=== PATIENT | female | born 1975 | race Caucasian/White ===

== ENCOUNTER → 2019-12-15 08:36 | Outpatient (BNVA) | payer OTHER, SELFPAY | PROVIDERS: Family Provider Family Medicine; PCP Family Medicine; Visit Provider Podiatrist Foot & Ankle Surgery | DX: M79.672 Pain in left foot (principal); M77.32 Calcaneal spur, left foot; R60.9 Edema, unspecified; M21.42 Flat foot [pes planus] (acquired), left foot | CPT/HCPCS: 73630 ==

== ENCOUNTER → 2020-01-05 08:22 | Outpatient (BNVA) | payer OTHER, SELFPAY | PROVIDERS: Family Provider Family Medicine; PCP Family Medicine; Visit Provider Podiatrist Foot & Ankle Surgery | DX: M25.572 Pain in left ankle and joints of left foot (principal); M79.673 Pain in unspecified foot; M21.42 Flat foot [pes planus] (acquired), left foot | CPT/HCPCS: 73600; 73630 ==

== ENCOUNTER 2021-05-26 17:42 | Outpatient (CLI) | payer OTHER, SELFPAY ==
--- NOTE | 2021-05-26 17:52 | XR_ITS ---
WS: [id number] LEFT KNEE: 3 VIEW(S) TECHNIQUE: AP, oblique(s) and lateral. HISTORY: LEFT KNEE PAIN COMPARISON: None available. No fracture or dislocation. Very mild narrowing of patellofemoral joint space. There are small osteophytes along the medial joint line and along the inferior patella. No joint effusion. No soft tissue abnormality. XR/XR knee LT 3V* [id number] IMPRESSION: Very mild osteoarthritic changes at the patellofemoral and medial compartments.
== END 2021-05-26 17:43 | disposition home or self-care (01) ==
LOC: RAD 17:46
PROVIDERS: PCP Family Medicine; Visit Provider Nurse Practitioner
DX: M25.562 Pain in left knee (principal)
CPT/HCPCS: 73562

== ENCOUNTER 2021-07-14 09:51 | Outpatient (RCR) | payer OTHER, SELFPAY | END 2021-08-09 23:59 | disposition home or self-care (01) | LOC: SPT 09:51 | PROVIDERS: PCP Family Medicine; Referring Provider Orthopaedic Surgery; Visit Provider Orthopaedic Surgery | DX: M25.562 Pain in left knee (principal) | CPT/HCPCS: 97110; 97161 ==

== ENCOUNTER → 2021-09-23 14:00 | Outpatient (BNVA) | payer OTHER, SELFPAY | PROVIDERS: PCP Family Medicine; Visit Provider Orthopaedic Surgery | DX: Z01.812 Encounter for preprocedural laboratory examination (principal); Z20.822 Contact with and (suspected) exposure to COVID-19 | CPT/HCPCS: 87635 ==

== ENCOUNTER 2021-09-29 08:39 | Day surgery (SDC) | payer OTHER, SELFPAY ==
[2021-09-29] VITALS (10 sets, daily range): BP systolic 149–164; BP diastolic 76–112; PULSE 74–88; RESP 11–18; TEMP 36.2–36.8; O2SAT 94–100; BMI 58.1
[2021-09-29] MEDS: sodium chloride 0.9% 1,000 ML 30 ML IV (10:00)
--- NOTE | 2021-09-29 10:06 | W.PM.OPSUD ---
Surgery/Procedure H&P Update DATE OF PROCEDURE: September 29, 2021 DATE H&P PERFORMED: 09/20/21 H&P UPDATE INFORMATION: I have reviewed H&P completed within last 30 days PREOP DIAGNOSIS: Left medial meniscal tear, chondromalacia PLANNED PROCEDURE: Operation Date: 09/29/21 10:20 Proposed Procedures p Knee Arthroscopy w/ Medial Menscectomy 69663 M17.12 S83.249A(Left) - Manjinder Morales MD
--- NOTE | 2021-09-29 10:10 | P.ANESASSM_ITS ---
Pre-Anesthetic Assessment Pre-Anesthetic Assessment: Height/Weight: Height 1.68 m Weight 163.293 kg Temp Pulse Resp BP Pulse Ox 98.2 F 78 18 151/112 99 09/29/21 09:03 09/29/21 09:03 09/29/21 09:03 09/29/21 09:03 09/29/21 09:03 Preop Diagnosis: Left medial meniscal tear, chondromalacia Proposed Procedure: Operation Date: 09/29/21 10:20 Proposed Procedures p Knee Arthroscopy w/ Medial Menscectomy 06275 M17.12 S83.249A(Left) - Manjinder Morales MD Familial anesthetic complications: None Was Beta Vasquez taken within 24 hours: N/A Was Clonidine taken within 24 hours: N/A Last intake: Intake Last Liquid Date 09/28/21 Last Liquid Time 22:00 Last Solid Date 09/28/21 Last Solid Time 17:30 Social: Social History: No alcohol and No tobacco Exam: Pre-Anes Outpt Exam: alert, oriented x 3, clear to auscultation bilaterally and regular rate & rhythm Airway: MP: 4 Dentition: Full Pulmonary: Pulmonary: Asthma CV/HEM: CV/HEM: HTN Metabolic: Metabolic: Morbid obesity Anesthetic Plan: ASA status: 3 Anesthesia: General Risk of > 500 ml blood loss (7ml/kg in children): No PFSH Anesthesia PFSH: Medical History (Updated 09/20/21 @ 10:48 by Manjinder Morales MD) Anxiety Depression Surgical History H/O: hysterectomy History of neck surgery (~03/2019) Family History Other Diabetes Denies family history of Cancer Social History Alcohol intake: never Household members: spouse and children Marital status: Current occupational status: employed Current occupation: [employer] [place] [employer] Anesthesia Cardiac Studies: No Data to Display
[2021-09-29] MEDS: ceFAZolin 3,000 MG in sodium chloride 0.9% (100 ml) 100 ML 200 MG IV (10:36)
[2021-09-29] MEDS: morphine 4 mg/mL SDV 1 mL 8 MG XX (11:16)
--- NOTE | 2021-09-29 11:48 | PM.OP ---
Operative Report Date of procedure: September 29, 2021 Pre-op Diagnosis: Left medial meniscal tear, chondromalacia Post-op diagnosis: other (Left lateral meniscal tear, chondromalacia patella and trochlea) Post-op Findings: As above Procedure Done: Arthroscopic left medial meniscectomy, chondroplasty patella and trochlea Pathology: none sent Surgeon: Manjinder Morales Anesthesia: General Estimated blood loss (mL): 5 Complications: None Findings: The patient had a complex tear involving the posterior lateral meniscus near the root however the root attachment was intact and tearing involved no more than 50% of the thickness of the tendon. The medial meniscus was healthy. She had chondromalacia of her patella and trochlea which is a fall thought to of 50% of the thickness Condition: stable Disposition: PACU Brief History: Dedra is a 45-year-old female with left knee pain and MRI suggestive of medial meniscal tearing. There is suggestions of chondromalacia. Previous treatment to this point has included anti-inflammatories and therapy without improvement. She was taken to the operating room for arthroscopic evaluation and medial meniscectomy with other indicated procedure Procedure: The patient was taken to the operating room and given 3 g of Ancef. She was given a general anesthesia. She was prepped and draped in the supine position with a tourniquet on her left thigh. The tourniquet was never inflated. The knee was infiltrated with 30 cc of 0.5% Marcaine with epi and 10 mg of morphine. A timeout was performed. The knee was entered through the standard inferior medial and inferolateral portals. The diagnostic portion of arthroscopy was performed. The medial meniscus was carefully probed and explored and found to be free of tearing. The leg was placed in a [id number] position revealing some tearing adjacent to the lateral meniscal root. With probing the seem to be a complex tear involving approximately the central 50% of the posterior meniscus near the root. It was not felt that the root integrity was compromised. Using an incisor shaver and Prieto and Nephew Werewolf probe torn posterior lateral meniscus was debrided back leaving approximately 50% of the meniscus behind. The patellofemoral joint was then inspected. She had fibrillation and fraying globally about the patella as well as over the trochlea. Debridement was initially begun on the patella utilizing the Prieto and Nephew Werewolf probe debriding the patella back to a stable base of tissue. Approximately 50% of the cartilage thickness was involved and no point was exposed subchondral bone noted. Similar debridement was accomplished centrally about the trochlea again with a similar 50% loss of cartilage but no exposed subchondral bone. The knee was irrigated with saline. Portals were closed with 3-0 Prolene. Sterile dressings were applied. The patient was extubated and taken to recovery room in stable condition.
[2021-09-29] MEDS: fentaNYL 50 mcg/mL INJ 2mL IVP (12:05)
[2021-09-29] MEDS: HYDROcodone-acetaminophen 5-325 mg Tablet 1 TAB PO (12:45)
--- NOTE | 2021-09-29 16:20 | ANE.PACU2 ---
Inpatient post-anesthesia follow up: Airway intact: Yes Vital signs: Temperature 98 F Pulse Rate 77 Respiratory Rate 16 Blood Pressure 150/94 Pulse Oximetry 100 Oxygen Delivery Me thod Room Air Oxygen Flow Rate 4 Fraction of Inspir ed Oxygen Hydration adequate: Yes Nausea and vomiting: No Pain level: 1 Mental status: Baseline
== END 2021-09-29 13:15 | disposition home or self-care (01) ==
PROVIDERS: PCP Family Medicine; Visit Provider Orthopaedic Surgery
PROC: (CPT 29870; principal; 2021-09-29 10:20)
DX: S83.242A Other tear of medial meniscus, current injury, left knee, initial encounter (principal); X58.XXXA Exposure to other specified factors, initial encounter; M22.42 Chondromalacia patellae, left knee; I10 Essential (primary) hypertension; E66.01 Morbid (severe) obesity due to excess calories; Z68.43 Body mass index [BMI] 50.0-59.9, adult; F41.9 Anxiety disorder, unspecified; F32.9 Major depressive disorder, single episode, unspecified; Z83.3 Family history of diabetes mellitus
CPT/HCPCS: 29881; J0330; J0690; J1885; J2270; J2704; J3010; J3490; J7030

== ENCOUNTER 2022-04-11 07:18 | Emergency (ER) | payer OTHER, SELFPAY ==
[2022-04-11] VITALS (7 sets, daily range): BP systolic 174–212; BP diastolic 76–100; PULSE 76–93; RESP 13–20; TEMP 36.9; O2SAT 97–100; BMI 54.8
[2022-04-11] MEDS: hyDRALAzine 20 mg/mL INJ 1 mL 10 MG IVP ×2 (07:56→08:17)
[2022-04-11] MEDS: fentaNYL 50 mcg/mL INJ 2mL IVP ×3 (08:23→09:19)
--- NOTE | 2022-04-11 08:23 | CT_ITS ---
WS: [id number] CT FACIAL BONES TECHNIQUE: Noncontrast facial bones with coronal and sagittal reformatted images. CLINICAL INFORMATION: mandible dislocation - unable to reduce? COMPARISON: None. DLP: 646.[address] scans at [facility] use at least one of these dose optimization techniques: automated e xposure control; mA and/or kV adjustment per patient size (includes targeted exams where dose is matc hed to clinical indication); or iterative reconstruction. FINDINGS: Mandibular condyles located within the condylar fossa bilaterally. No dislocation. LEFT condylar ophelia a and mandibular condyle are normal. No acute fractures. Slight anterolisthesis C2 on C3. Postoperative changes upper cervical spine ACDF C4-C5. Paranasal sinuses and mastoid air cells well aerated. Normal posterior nasopharynx. Normal paraphary ngeal fat. CT/CT facial bones wo con* [id number] IMPRESSION: 1. Mandibular condyles located within the condylar fossa bilaterally. No dislo cation. 2. LEFT condylar fossa and mandibular condyle are normal. 3. Slight subchondral cystic change involving the LEFT greater than RIGHT ellen ibular condyles. 4. No acute fractures.
--- NOTE | 2022-04-11 08:25 | PC.NURSE ---
0806 ADM IVP 10 MG ETOMIDATE ATTEMPTING REDUCTION. 0810 DR. MATHUR VO TO ADM 10 MG ADDITIONAL IVP ETOMIDATE STILL ATTEMPTING REDUCTION. [address] MATHUR TO ADM [address] MATHUR STILL ATTEMPTING REDUCTION. [address] MATHUR TO ADM 25 MG IVP PROPOFOL. [address] MATHUR TO ADM 25 MG IVP PROPOFOL. 0817 VO TO ADM 10 MG IVP HYDRALIZINE PER DR. MATHUR [address] MATHUR TO ADM 50 MG OF IVP PROPOFOL. DR. MATHUR VO TO TAKE PT TO CT TO CONFIRM PLACEMENT OF REDUCTION. 0819 DR. MATHUR EXITS ROOM. 0829 RN'SX2 AND RN REMAIN AT BEDSIDE.
[2022-04-11] MEDS: propofol 10 mg/mL SDV 20 mL 150 MG IVP (08:32)
--- NOTE | 2022-04-11 10:45 | W.ED.DENTAL ---
HPI - Dental/Oral General: Chief complaint: Dental/Oral Stated complaint: Jaw pain Time Seen by Provider: 04/11/22 07:20 Source: patient Mode of arrival: ambulatory Limitations: no limitations History of Present Illness: 46-year-old female who presents emergency room she has had multiple episodes in the past of subluxation and even dislocation and of her mandible. She usually able to reduce this herself today she yawned and it popped out and now she does not feel he could overclosure well fully she cannot chew its quite painful. Has been out for over an hour. Onset (ago): hour(s) Duration: constant Severity: moderate Relieving factors: nothing Exacerbating factors: chewing Context: other (History of recurrent mandibular dislocations) Associated symptoms: Denies ear or mastoid pain, fever(s), gum swelling, odynophagia, sore throat or tongue swelling Treatment prior to arrival: none Review of Systems Const: Denies: fever(s), chills, fatigue or malaise ENMT: Denies: throat pain, uvular edema, enlarged tonsils, odynophagia, mouth pain, swelling of lips/tongue, bleeding gums, dental pain or ear or mastoid pain Card: Denies: chest pain, palpitations, edema, dyspnea on exertion or orthopnea Resp: Denies: dyspnea, productive cough or non-productive cough GI: Denies: abdominal pain, nausea, vomiting, hematemesis, coffee ground emesis, diarrhea, constipation, bloating, hematochezia or melena : Denies: flank pain, difficulty voiding, dysuria, urinary frequency or urinary urgency Skin/Breast: Denies: rash or pruritus All/Imm: Denies: tongue swelling PFSH ED PFSH: Medical History Anxiety Depression Surgical History H/O: hysterectomy History of neck surgery (~03/2019) Family History Other Diabetes Denies family history of Cancer Social History Smoking and tobacco status: never smoked Alcohol intake: never Household members: spouse and children Marital status: Current occupational status: employed Current occupation: [employer] [place] Physical Exam Const: COMMON NORMALS: no acute distress GENERAL APPEARANCE: cooperative and comfortable ORIENTATION/CONSCIOUSNESS: Yes awake, Yes oriented to person, Yes oriented to place and Yes oriented to time HENMT: COMMON NORMALS: normocephalic, atraumatic, hearing grossly normal bilaterally, external ears normal, EAC's normal, TM's normal bilaterally, Normal nasal mucous membranes and turbinates present, moist oral mucous membranes and oropharynx normal HEAD & SCALP: normocephalic and atraumatic NOSE: Normal nasal mucous membranes and turbinates present EXTERNAL EAR: Yes external ears normal EXTERNAL AUDITORY CANAL: EAC's normal TYMPANIC MEMBRANE: TM's normal bilaterally THROAT: no uvular edema OTHER: Patient unable to open and close jaw completely holds onto partially open position. With attempts to assist occlusion or further opening patient has severe pain. Direct manipulation of the jaw. Despite titrating to rather large doses of medications patient was never completely unconscious. I was able to manipulate the jaw with some difficulty and able to get it reduced however could not tactilely note the point of reduction. However patient is now able to open and close the jaw appropriately. She has completely recovered from her sedation see below. Neck/C-Spine: COMMON NORMALS: full ROM, no lymphadenopathy, supple and no JVD Lymph: LYMPHATIC: no lymphadenopathy noted and no lymphedema noted Resp: COMMON NORMALS: normal respiratory effort, No retractions, No use of accessory muscles and clear to auscultation bilaterally AUSCULTATION: clear to auscultation bilaterally Cardio: COMMON NORMALS: no JVD, regular rate, regular rhythm and No murmurs present (Cardio) RATE: regular rate RHYTHM: regular rhythm GI: COMMON NORMALS: Soft to palpation and No hepatosplenomegaly present AUSCULTATION: Yes normoactive bowel sounds PALPATION: Yes Soft to palpation, No Tenderness to palpation present (GI), No Guarding due to palpation present (GI) and Yes No hepatosplenomegaly present Extremity: COMMON NORMALS: normal to inspection, capillary refill normal, no clubbing, cyanosis or edema, no calf tenderness and no pedal edema Neuro: SENSORIUM/ORIENTATION: Yes oriented to person, Yes oriented to place and Yes oriented to time Skin: COMMON NORMALS: no rashes or lesions noted GENERAL SKIN EXAM: no rashes or lesions noted Procedures Orthopedic Joint Reduction Joint #1: Time Out Performed: Yes Joint Reduction Location: other (Mandible) Analgesia: procedural sedation Technique used: direct manipulation Post Reduction X-Ray Obtained: Yes (CT facial bones adequately reduced) Post Reduction X-Ray Results: reduced Patient Tolerated Procedure: well Procedural Sedation Indication: fracture/dislocation reduction Preparation: deer farmer applied, pulse oximeter, supplemental O2 applied, suction/airway equipment at bedside and IV secured Fentanyl: IV Fentanyl dose (mcg): 50 IV Propofol dose (mg): 150 IV Etomidate dose (mg): 20 Course Vital Signs: Vital signs: Vital Signs Temperature 98.5 F 04/11/22 07:24 Pulse Rate 84 04/11/22 10:04 Respiratory Rate 14 04/11/22 10:04 Blood Pressure 174/76 04/11/22 10:04 Pulse Oximetry 97 04/11/22 10:04 Oxygen Delivery Me thod 04/11/22 07:24 MDM - Dental/Oral Medical Decision Making Mandible successfully reduced. Patient reports having multiple episodes of this in the past usually she is able to reduce on her own. Discussed things that may exacerbate this such as yawning chewing gums and thick textured foods. Avoid all this. I did talk to oral maxillary facial surgery and we will get her referred there. Given the recurrence episodes of this she is having she should have further evaluation. Given we are able to reduce without actually noting a pointed reduction suspect the joint has become extremely loose and she will be very susceptible to recurrent dislocations. Lab Data Radiology Impressions Face CT 04/11/22 08:23 IMPRESSION: 1. Mandibular condyles located within the condylar fossa bilaterally. No dislocation. 2. LEFT condylar fossa and mandibular condyle are normal. 3. Slight subchondral cystic change involving the LEFT greater than RIGHT mandibular condyles. 4. No acute fractures. Discharge Plan Discharge Patient Disposition: Home Clinical Impression: Closed dislocation of mandible Condition: Stable Prescriptions: New hydrocodone-acetaminophen 5-325 mg tablet 1 tab PO Q6H PRN (Reason: pain) Qty: 15 0RF No Action amlodipine 2.5 mg tablet 2.5 mg PO DAILY duloxetine 30 mg capsule,delayed release(DR/EC) 30 mg PO DAILY albuterol sulfate 90 mcg/actuation Hfa Aerosol Inhaler 2 puff INHALATION QID PRN (Reason: Shortness Of Breath) Discharge Orders: Discharge ED (Routine); Ordered 04/11/22 Ordered By: Harjit Lu Referrals: Enrique Graham MD [Primary Care Provider] - Discharge Diet: Usual diet Patient Instructions: Opioid Safety Activity Restrictions/Additional Instructions: web content & social media manager will make arrangements for you to follow-up with oral maxillofacial surgery. Avoid difficult to chew foods, thick textured foods and chewing gum until you are seen by them. Coding Level of Care Code ED In Store Marketing Associate for Bob Recinos
--- NOTE | 2022-04-11 13:27 | DCPLANNER ---
business planning manager was asked to send referral to oral maxillofacial surgery in [place]. business planning manager called phone number [phone] and was told when patients chart was finished to fax it to [phone] and that patient can call about scheduling appointment. business planning manager will fax patients information to the the surgery clinic.
== END 2022-04-11 10:08 | disposition home or self-care (01) ==
PROVIDERS: Emergency Provider Family Medicine; PCP Family Medicine
DX: S03.03XA Dislocation of jaw, bilateral, initial encounter (principal); X58.XXXA Exposure to other specified factors, initial encounter
CPT/HCPCS: 21480; 70486; 96374; 96375; 99152; 99285; J0360; J2704; J3010; J3490

== ENCOUNTER → 2023-03-20 07:53 | Outpatient (BNVA) | payer OTHER, SELFPAY | PROVIDERS: PCP Family Medicine; Visit Provider Family Medicine | DX: I10 Essential (primary) hypertension (principal) | CPT/HCPCS: 80053; 84439; 84443; 85025 ==

== ENCOUNTER 2023-04-11 07:51 | Outpatient (CLI) | payer OTHER, SELFPAY ==
--- NOTE | 2023-04-11 08:11 | MM_ITS ---
WS: [id number] SCREENING DIGITAL TOMOSYNTHESIS MAMMOGRAM WITH CAD HISTORY: SCREENING COMPARISON: None available. Bilateral CC and MLO with tomosynthesis views submitted. Synthetic mammography reviewed. Computer aid ed detection analyzed. Breast composition: There are scattered areas of fibroglandular density. No suspicious masses, microc alcifications or architectural distortion. MM/[place] [id number] IMPRESSION: BI-RADS: 1-Negative FOLLOW UP: 1 Year Follow-up
== END 2023-04-11 07:52 | disposition home or self-care (01) ==
PROVIDERS: PCP Family Medicine; Visit Provider Family Medicine
DX: Z12.31 Encounter for screening mammogram for malignant neoplasm of breast (principal)
CPT/HCPCS: 77063; 77067

== ENCOUNTER 2023-10-08 21:42 | Emergency (ER) | payer OTHER, SELFPAY ==
[2023-10-08 21:46] VITALS: BP 181/98; PULSE 76; RESP 17; TEMP 36.4; O2SAT 96
--- NOTE | 2023-10-08 22:06 | W.ED.ALLEREA ---
HPI - Allergic Reaction General: Chief complaint: Allergic Reaction Stated complaint: skin irritaiton itching tounge burning Time Seen by Provider: 10/08/23 21:43 Source: patient Mode of arrival: ambulatory Limitations: no limitations History of Present Illness: HPI narrative: 47-year-old female who states that roughly 2 hours ago she started having rash to her extremities and trunk is quite pruritic in nature rash is hive-like states she feels like the rash is moving like her tongue was burning she denies any shortness of breath she took 2 Benadryl's at home she had no improving factors she has had 1 episode before in the past unsure what caused it. Associated symptoms: Deny abdominal pain, nausea or vomiting Review of Systems Const: Denies: fever(s), chills, body aches or change in appetite ENMT: Denies: throat pain or dental pain Card: Denies: chest pain Resp: Denies: dyspnea GI: Denies: abdominal pain, nausea, vomiting or diarrhea Musc: Denies: neck pain or back pain Skin/Breast: Reports: rash and pruritus Neuro: Denies: headache(s) PFSH ED PFSH: Medical History Anxiety Bronchitis Depression Essential hypertension Mild intermittent asthma Morbid obesity LORRIE (obstructive sleep apnea) URI with cough and congestion Surgical History History of S/P matrixectomy of toe History of neck surgery (~03/2019) H/O: hysterectomy Family History Family/Other Cancer Paternal aunt-breast Other Diabetes Hyperlipidemia Hypertension Lung disease Stroke Denies family history of CAD (coronary artery disease) Clotting disorder Dementia Psychiatric illness Chronic kidney disease (CKD) Anesthesia complication Bleeding disorder Social History Smoking and tobacco/nicotine status: never used tobacco/nicotine Alcohol intake: never Substance/Drug Use: never Household members: spouse and children Marital status: Number of children: 3 Current occupational status: employed 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 Cathryn/Caodaism: Lutheran Special cathryn needs: No Agree to transfusion: Yes Physical Exam Const: COMMON NORMALS: no acute distress, patient oriented x3 and healthy appearing HENMT: COMMON NORMALS: normocephalic and atraumatic HEAD & SCALP: normocephalic and atraumatic MOUTH: Normal oral and palatal mucosa present THROAT: posterior oropharynx normal Eye: COMMON NORMALS: Equal, round and reactive pupils present and EOMs intact bilaterally PUPIL: Yes Equal, round and reactive pupils present Neck/C-Spine: COMMON NORMALS: full ROM and supple Chest: COMMONS NORMALS: normal inspection of the chest Resp: COMMON NORMALS: normal respiratory effort, No retractions, No use of accessory muscles and clear to auscultation bilaterally AUSCULTATION: clear to auscultation bilaterally Cardio: COMMON NORMALS: regular rate, regular rhythm and No murmurs present (Cardio) RATE: regular rate RHYTHM: regular rhythm Extremity: COMMON NORMALS: normal to inspection and full ROM Neuro: COMMON NORMALS: patient oriented x3, moves all extremities and no focal motor deficits Psych: COMMON NORMALS: mental status grossly normal, Normal thought process present and cooperative THOUGHT PROCESS: Normal thought process present Skin: COMMON NORMALS: no wounds NARRATIVE SKIN EXAM: Hive-like rash to trunk and extremities Course Vital Signs: Vital signs: Vital Signs Temperature 97.6 F 10/08/23 21:46 Pulse Rate 58 L 10/08/23 22:57 Respiratory Rate 18 10/08/23 22:37 Blood Pressure 161/96 10/08/23 22:57 Pulse Oximetry 96 10/08/23 22:57 Oxygen Delivery Me thod Room Air 10/08/23 21:46 MDM - Allergic Reaction Medical Decision Making Patient presents here with allergic reaction with hives they resolved here she is well-appearing here no signs of anaphylaxis she is stable for discharge we will prescribe her prednisone she is to return if worsening. Medical Records I reviewed the patient's medical records. No radiology studies performed this visit Discharge Plan Discharge Patient Disposition: Home Clinical Impression: Allergic reaction Condition: Stable Prescriptions: New prednisone 50 mg tablet 50 mg PO DAILY Qty: 5 0RF No Action amlodipine 2.5 mg tablet 2.5 mg PO DAILY duloxetine 30 mg capsule,delayed release(DR/EC) 30 mg PO DAILY Victoza 3-Kobe 0.6 mg/0.1 mL (18 mg/3 mL) pen injector See Rx Instructions SUBCUT Q24H Qty: 9 3RF Rx Instructions: 0.6mg during week 1, 1.2mg during week 2, 1.8mg during week 3, 2.4mg during week 4 subcutaneously every 24 hours; fluticasone propionate 50 mcg/actuation spray,suspension 1 spray intranasal BID Qty: 16 0RF Rx Instructions: administer into each nostril albuterol sulfate 90 mcg/actuation Hfa Aerosol Inhaler 2 puff INHALATION QID PRN (Reason: Shortness Of Breath) Discharge Orders: Discharge ED (Routine); Ordered 10/08/23 Ordered By: Cabrera Alfredo Referrals: Enrique Graham MD [Primary Care Provider] - 1-3 days Discharge Diet: Advance as tolerated Discharge Activity: Resume usual activity Patient Instructions: General Allergic Reaction (ED) Coding Level of Care Code ED Credit Union Examiner for Bob Recinos
[2023-10-08] MEDS: ondansetron 2 mg/ML SDV 2 mL 4 MG IVP (22:13)
[2023-10-08] MEDS: famotidine 20 mg/2 mL INJ 40 MG IVP (22:13)
[2023-10-08] MEDS: diphenhydrAMINE 50 mg/mL SDV 1mL IVP (22:13)
[2023-10-08] MEDS: methylPREDNISolone sod succ 125 mg/2 mL INJ IVP (22:13)
[2023-10-08 22:37] VITALS: BP 170/95; PULSE 68; RESP 18; O2SAT 97
[2023-10-08 22:57] VITALS: BP 161/96; PULSE 58; O2SAT 96
== END 2023-10-08 22:57 | disposition home or self-care (01) ==
PROVIDERS: Emergency Provider Emergency Medicine; PCP Family Medicine
DX: T78.40XA Allergy, unspecified, initial encounter (principal); X58.XXXA Exposure to other specified factors, initial encounter; L29.9 Pruritus, unspecified; I10 Essential (primary) hypertension
CPT/HCPCS: 96374; 96375; 99284; J1200; J2405; J2930; J3490

== ENCOUNTER → 2024-05-15 14:21 | Outpatient (BNVA) | payer OTHER, SELFPAY | PROVIDERS: PCP Family Medicine; Visit Provider Podiatrist Foot & Ankle Surgery | DX: M79.672 Pain in left foot (principal); M76.822 Posterior tibial tendinitis, left leg; B35.3 Tinea pedis | CPT/HCPCS: 73630 ==

== ENCOUNTER → 2024-06-13 08:21 | Outpatient (BNVA) | payer OTHER, SELFPAY | PROVIDERS: PCP Family Medicine; Visit Provider Specialist | DX: S69.91XA Unspecified injury of right wrist, hand and finger(s), initial encounter (principal); X58.XXXA Exposure to other specified factors, initial encounter | CPT/HCPCS: 73130 ==

== ENCOUNTER 2024-06-13 09:29 | Outpatient (CLI) | payer OTHER, SELFPAY | END 2024-06-13 09:30 | disposition home or self-care (01) | LOC: SPT 09:31 | PROVIDERS: PCP Family Medicine; Visit Provider Specialist | DX: Z46.89 Encounter for fitting and adjustment of other specified devices (principal); S69.91XS Unspecified injury of right wrist, hand and finger(s), sequela; X58.XXXS Exposure to other specified factors, sequela | CPT/HCPCS: L3807 ==

== ENCOUNTER 2024-07-23 07:44 | Outpatient (CLI) | payer OTHER, SELFPAY ==
--- NOTE | 2024-07-23 07:48 | MRR_ITS ---
PROCEDURE INFORMATION: Exam: MR Left Lower Extremity Joint Without Contrast; Ankle Exam date and time: 07/23/2024 8:00 AM Age: 48 years old Clinical indication: Pain; Ankle; Left; Additional info: Pre surgical planning, (hind foot) include the navicular to left ankle-changed to ankle per TECHNIQUE: Imaging protocol: Magnetic resonance imaging of the left lower extremity without contrast. Exam focused on the ankle. COMPARISON: CR XR ankle LT 2V [id number] 01/05/2020 8:28 AM FINDINGS: Bones/joints: Osseous alignment is normal. Mild posterior calcaneal enthesophyte formation is identified. Small to moderate-sized os trigonum and os navicularis are noted. Small osteophytes are noted between the os navicularis and the underlying navicular, for example on series 3, image 16 in the region of the skin marker. No acute fracture. LIGAMENTS: Distal tibiofibular syndesmosis: Unremarkable. No tear. Anterior talofibular ligament: Unremarkable. No tear. Posterior talofibular ligament: Unremarkable. No tear. Calcaneofibular ligament: Unremarkable. No tear. Deltoid ligament complex: Unremarkable. No tear. Spring ligament complex: Edema is identify superficial to the region of the spring ligament complex which appears intact. TENDONS: Flexor tendons of foot: Mild abnormal fluid in the flexor digitorum longus tendon sheath is present. Mild fluid in the flexor hallucis longus tendon sheath appears to be within physiologic limits. Tibialis posterior tendon: Mild abnormal fluid in the tibialis posterior tendon sheath is noted. Peroneal tendons: Mild abnormal fluid in the peroneus longus and brevis tendon sheaths is noted proximally. Extensor tendons of foot: Unremarkable as visualized. Tibialis anterior tendon: Unremarkable as visualized. Achilles tendon: Unremarkable as visualized. Tarsal canal (Sinus tarsi): Unremarkable. Normal signal of the fat. Tarsal tunnel: Unremarkable. Soft tissues: A skin marker overlies the dorsal aspect of the medial midfoot. Mild medial and lateral ankle subcutaneous edema is noted. [id number] anteromedial tibiotalar capsular edema is noted. Plantar fascia: Plantar fascia is unremarkable. MR/MR ankle LT wo con* [id number] IMPRESSION: 1. No acute osseous findings. 2. A small to moderate-sized os navicularis is identified, with evidence of osteoarthritic changes between the ossicle and the underlying navicular. This is in the region of the skin marker. 3. Mild anteromedial tibiotalar capsular edema. 4. Mild tibialis posterior and flexor digitorum longus tenosynovitis. 5. Mild peroneus longus and brevis tenosynovitis.
== END 2024-07-23 07:45 | disposition home or self-care (01) ==
PROVIDERS: PCP Family Medicine; Visit Provider Podiatrist Foot & Ankle Surgery
DX: Z01.818 Encounter for other preprocedural examination (principal); Q68.8 Other specified congenital musculoskeletal deformities; M19.072 Primary osteoarthritis, left ankle and foot
CPT/HCPCS: 73721

== ENCOUNTER 2024-08-29 06:06 | Day surgery (SDC) | payer OTHER, SELFPAY ==
[2024-08-29] VITALS (10 sets, daily range): BP systolic 109–149; BP diastolic 60–93; PULSE 50–81; RESP 13–18; TEMP 36.3–36.7; O2SAT 99–100; BMI 36.0
[2024-08-29] MEDS: CELEcoxib 200 mg Capsule 400 MG PO (06:51)
[2024-08-29] MEDS: gabapentin 300 mg Capsule PO (06:51)
[2024-08-29] MEDS: sodium chloride 0.9% 1,000 ML 30 ML IV (06:51)
[2024-08-29] MEDS: scopolamine 1.5 Patch 1 PATCH TRANSDERMA (06:52)
[2024-08-29] MEDS: famotidine 20 mg/2 mL INJ IVP (08:07)
--- NOTE | 2024-08-29 08:31 | W.PM.OPSUD ---
Surgery/Procedure H&P Update DATE OF PROCEDURE: August 29, 2024 DATE H&P PERFORMED: 07/31/24 H&P UPDATE INFORMATION: I have reviewed H&P completed within last 30 days, I have examined patient prior to procedure, No changes to prior documentation and H&P is in [facility] – [place] EMR on date indicated PREOP DIAGNOSIS: Left posterior tibial tendon dysfunction PLANNED PROCEDURE: Operation Date: 08/29/24 08:00 Proposed Procedures p Kidner Procedure(Left) - Obed Tripathi DPM s Tendon Transfer Foot Flexor Digitorum Longus(Left) - Obed Tripathi DPM
[2024-08-29] MEDS: ceFAZolin 2,000 mg SDV 2000 MG IVP (08:51)
--- NOTE | 2024-08-29 09:11 | P.ANESASSM_ITS ---
Pre-Anesthetic Assessment Height/Weight: Height 5 ft 4 in Weight 210 lb Temp Pulse Resp BP Pulse Ox O2 Del Method 98.0 F 81 18 149/93 99 Room Air 08/29/24 06:32 08/29/24 06:32 08/29/24 06:32 08/29/24 06:32 08/29/24 06:32 08/29/24 06:32 Preop Diagnosis: Left posterior tibial tendon dysfunction Operation Date: 08/29/24 08:00 Proposed Procedures p Kidner Procedure(Left) - Obed Tripathi DPM s Tendon Transfer Foot Flexor Digitorum Longus(Left) - Obed Tripathi DPM Was Beta Vasquez taken within 24 hours: N/A Was Clonidine taken within 24 hours: N/A Last intake: Intake Last Liquid Date 08/28/24 Last Liquid Time 21:00 Last Solid Date 08/28/24 Last Solid Time 18:00 Social No alcohol and No tobacco Exam alert, oriented x 3, clear to auscultation bilaterally and regular rate & rhythm Airway Submandibular: within normal limits Cervical ROM: within normal limits Mallampati: Class II Dentition: full Anesthetic Plan ASA status: 3 Anesthesia: General Other: No prior issues with anesthesia NPO since yesterday History of alpha gal, team aware LORRIE, on CPAP Prior gastric bypass surgery Mets>4 Plan for GA Medications/Allergies Home Medications Medication Instructions Recorded Confirmed Last Taken Type duloxetine 30 mg capsule,delayed 30 mg PO DAILY 12/15/19 08/29/24 08/28/24 History release albuterol sulfate 90 mcg/actuation 2 puff inhalation QID PRN 04/11/22 08/29/24 Unknown History aerosol inhaler Shortness Of Breath fluticasone propionate 50 1 spray intranasal BID #16 grams 09/04/22 08/29/24 08/20/24 Rx mcg/actuation nasal spray,suspension triamcinolone acetonide 0.1 % 1 applic topical BID 14 days #80 05/15/24 08/29/24 Unknown Rx topical cream grams Deirdre Gutter, off the shelf #1 ea 06/13/24 07/31/24 Unknown Rx calcium 500 mg tablet 500 mg PO 3XD 08/28/24 08/29/24 08/28/24 History ferrous sulfate 27 mg iron tablet 30 mg PO DAILY 08/28/24 08/29/24 08/28/24 History multivitamin See Rx Instructions .Route .COMPLEX 08/28/24 08/29/24 08/28/24 History vit D3-folic acid-vit B2-B6-B12 5,000 tab PO 2XD 08/28/24 08/29/24 08/28/24 History 2,000 unit-800 mcg-0.32 mg tablet epinephrine 0.3 mg/0.3 mL 0.3 mg SUBCUT PRN 08/29/24 08/29/24 Unknown History injection, auto-injector hydrocodone 10 mg-acetaminophen 1 tab PO Q6H PRN pain 7 days #28 08/29/24 Unknown Rx 325 mg tablet tabs Allergies Allergy/AdvReac Type Severity Reaction Status Date / Time Alpha-Gal Allergy Unknown Verified 08/29/24 06:31 (Hgbjuzfoz-Jasdv-0,3-Gala Current Medications Generic Name Dose Route Start Last Admin Trade Name Freq PRN Reason Stop Dose Admin Sodium Chloride 1,000 mls @ 30 mls/hr 08/29/24 06:30 08/29/24 06:51 Sodium Chloride 0.9% IV 08/30/24 06:29 30 mls/hr .Q24H ZEUS Administration PFSH Anesthesia Medical History Mild intermittent asthma LORRIE (obstructive sleep apnea) Morbid obesity Essential hypertension Bronchitis URI with cough and congestion Depression Anxiety Surgical History History of S/P matrixectomy of toe History of neck surgery (~03/2019) H/O: hysterectomy Family History Family/Other Cancer Paternal aunt-breast Other Diabetes Hyperlipidemia Hypertension Lung disease Stroke Denies family history of CAD (coronary artery disease) Clotting disorder Dementia Psychiatric illness Chronic kidney disease (CKD) Anesthesia complication Bleeding disorder Social History Smoking and tobacco/nicotine status: never used tobacco/nicotine Alcohol intake: never Substance/Drug Use: never Household members: spouse and children Marital status: Number of children: 3 Current occupational status: employed 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
--- NOTE | 2024-08-29 09:31 | ANES.PROC ---
Anesthesia Procedures Procedure/Date: 08/29/24 Nerve Block ^: Nerve Block 1: Main Anesthesia: general anesthesia Time Out Performed: Yes Consent: requested by attending/covering physician Nerve block location: popliteal Anesthesia monitors applied: pulse oximetry, EKG, BP cuff and oxygen Nerve block position: supine Anesthetic Used: ropivicaine 0.5% Amount of anesthesia used (mL): 25 Ultrasound used to: recognize landmarks Nerve Stimulator Used?: Yes Interscalene/Femoral BLK: other needle (pjunk 4inch) Injection: neg aspiration of heme Patient Tolerated Procedure: well Complications: none Additional Comments: decadron 4mg added to block Nerve Block 2: Main Anesthesia: general anesthesia Time Out Performed: Yes Consent: requested by attending/covering physician Nerve block location: adductor canal Anesthesia monitors applied: pulse oximetry, EKG, BP cuff and oxygen Nerve block position: supine Anesthetic Used: ropivicaine 0.5% Amount of anesthesia used (mL): 15 Ultrasound used to: recognize landmarks Nerve Stimulator Used?: No Injection: neg aspiration of heme Patient Tolerated Procedure: well Complications: none
--- NOTE | 2024-08-29 09:52 | P.BOP_ITS ---
Date of Procedure: 11/23/23 Surgeon: Obed Tripathi DPM Infection Control Specialist(s): Moe Procedure(s) performed: Modified Kidner left foot Findings of the procedure(s): Accessory ossicle with degenerative changes at the insertion of the posterior tibial tendon left foot Estimated blood loss: 2 mL Specimen(s) removed: None Post-operative diagnosis: Left posterior tibial tendon dysfunction
--- NOTE | 2024-08-29 09:53 | P.OP_ITS ---
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 CPT code 25027 Implants: [place] Cloth Shrinking Tester titanium bone anchor 3 mm x 12 mm in length 3-0 Vicryl, 4-0 Vicryl, 4-0 nylon Specimens removed/disposition: No specimens removed Pathology: no pathology Surgeon: Obed Tripathi DPM Prototype Deicer Assembler: Moe Estimated blood loss: 2 mL Tourniquet time: 30 minutes left ankle. IV fluids: See intraoperative documentation Urine output: None Complications: No complications Brief History: - Imaging: MRI indicates issues at the insertion of the posterior tibial tendon and presence of an accessory navicular bone. Assessment and Plan 48-year-old female with a history of accessory navicular syndrome presenting with foot pain and tendon dysfunction. The MRI confirms the accessory navicular bone and significant inflammation of the posterior tibial tendon as the primary problem. The flatfoot deformity is also present but not severe. The condition leads to considerable pain, potentially impacting the patient?s daily activities and requiring intervention. 1. Left posterior Tibial Tendon Dysfunction Tendon repair or possible tendon transfer will be undertaken during surgery, depending on the intraoperative evaluation of tendon viability and damage. Post- surgical immobilization and therapy are critical to recovery. 2. Left flatfoot Deformity Continue to monitor the flatfoot deformity, with potential future reconstruction if symptoms persist or worsen despite addressing the accessory navicular as this might mitigate long-term complications. 3. Left accessory Navicular Syndrome Surgical excision of the accessory navicular bone and repair of the posterior tibial tendon are planned. If the tendon appears significantly compromised during surgery, tendon transfer will be performed. Post-operative care includes six weeks of [id number], followed by two weeks of protected weight- bearing, transitioning into regular shoe wear over three months. - Schedule surgery for August 29. - Prepare for approximately three months of rehabilitation following surgery. - Take baby aspirin starting the day after surgery to reduce thrombosis risk. - Engage in limited mobility, adhering strictly to [id number] instructions for six weeks post-surgery. - Arrange follow-up appointments as discussed for post-surgical evaluation and rehabilitation planning. Procedure: Under mild sedation the patient was brought to the operating room and placed onto the operating table in supine position. A timeout was performed. Anesthesia was then administered by the anesthesia service. Of note popliteal block was performed preoperatively per anesthesia left lower extremity. Well- padded pneumatic tourniquet applied to the left ankle. Left lower extremity was scrubbed, prepped and draped utilizing normal aseptic technique. Left foot and ankle were then exanguinated with a Esmarch bandage and the ankle tourniquet was inflated to 250 mmHg. Attention was directed to the left medial rear foot where an incision was carried out with a #15 blade extending from the inferior portion of the medial malleolus distally to the medial cuneiform through skin with a #15 blade with dissection carried down through subcutaneous tissue to the layer of the posterior tibial tendon utilizing sharp and blunt technique. Care was taken to retract and preserve neurovascular and tendinous structures. All bleeders were ligated and cauterized as necessary. Attention was then directed to the posterior tibial tendon as it inserted to the medial navicular, the tendon was degenerative, thickened with fibrosing and split tearing at insertion, the accessory bone within the posterior tibial tendon was sharply excised and passed from operative field and the medial navicular freshened up with a sagittal saw for area to reattach the posterior tibial tendon. The posterior tibial tendon was sharply debrided of devitalized tendon and tubularized and reinserted at the medial navicular utilizing a [place] 3.0 x 12 mm titanium bone anchor with excellent strength and advancement of the posterior tibial tendon. The incision was then irrigated with copious amounts of sterile saline solution. Intraoperative C-arm confirmed that titanium anchor did not violate adjacent cartilage surfaces or joints. Further irrigation performed at the incision followed by closure in a layered fashion with periosteum and tendon sheath reapproximated with 3-0 Vicryl, subcutaneous tissue with 4-0 Vicryl and skin with 4-0 nylon. The incision was then dressed with Adaptic, sterile 4 x 4's, Kerlix and Chetan wrap followed by application of a posterior splint with stirrup which was well-padded with multi layer compression consistent with Shah splint with the foot and ankle in neutral position. Tourniquet was then deflated and a prompt hyperemic response was appreciated to the distal digits of the left foot. Patient tolerated the procedure and anesthesia well and was transferred to the PACU with vital signs stable and vascular status intact. Following a period of postoperative monitoring she will be discharged home without home care instructions, scheduled follow-up in my cell phone number to contact me with any postoperative questions or concerns.
[2024-08-29] MEDS: fentaNYL 50 mcg/mL INJ 2mL IVP (10:05)
--- NOTE | 2024-08-29 10:58 | ANE.PACU2 ---
Inpatient post-anesthesia follow up: Airway intact: Yes Vital signs: Temperature 97.3 F Pulse Rate 58 Respiratory Rate 17 Blood Pressure 137/70 Pulse Oximetry 100 Oxygen Delivery Me thod Room Air Oxygen Flow Rate Fraction of Inspir ed Oxygen Hydration adequate: Yes Nausea and vomiting: No Pain level: 1 Mental status: Baseline
== END 2024-08-29 10:58 | disposition home or self-care (01) ==
PROVIDERS: PCP Family Medicine; Visit Provider Podiatrist Foot & Ankle Surgery
PROC: (CPT 28238; principal; 2024-08-29 08:00)
PROC: (CPT 28238; 2024-08-29 08:00)
DX: M19.072 Primary osteoarthritis, left ankle and foot (principal); M21.42 Flat foot [pes planus] (acquired), left foot; M76.822 Posterior tibial tendinitis, left leg; G47.33 Obstructive sleep apnea (adult) (pediatric); Z98.84 Bariatric surgery status; E66.01 Morbid (severe) obesity due to excess calories; Z68.36 Body mass index [BMI] 36.0-36.9, adult
CPT/HCPCS: 28238; 76000; C1713; J0690; J1100; J1200; J2250; J2405; J2704; J3010; J3490; J7030

== ENCOUNTER → 2024-09-11 14:06 | Outpatient (BNVA) | payer SELFPAY | PROVIDERS: PCP Family Medicine; Visit Provider Podiatrist Foot & Ankle Surgery | DX: Z98.890 Other specified postprocedural states (principal) | CPT/HCPCS: 73630 ==

== ENCOUNTER → 2025-03-16 09:54 | Outpatient (BNVA) | payer OTHER, SELFPAY | PROVIDERS: PCP Family Medicine; Visit Provider Podiatrist Foot & Ankle Surgery | DX: M77.42 Metatarsalgia, left foot (principal); M79.672 Pain in left foot; M25.572 Pain in left ankle and joints of left foot | CPT/HCPCS: 73630 ==